=== PATIENT | female | born 1930 | race Caucasian/White ===

== ENCOUNTER 2017-09-19 11:27 | Emergency (ER) | payer OTHER, MEDICAID ==
[~2017-09-19] VITALS: Ht 149.9 cm; Wt 82.6 kg
[2017-09-19] MEDS ORDERED: FLEET ENEMA(ADULT) 135 ML PR ONE (12:00)
[2017-09-19 12:44] LABS: Basophils # (auto) 0.1 uL; Eosinophils # (auto) 0.4 uL; Lymphocytes # (auto) 1.9 uL; Monocytes # (auto) 0.7 uL; Neutrophils # (auto) 4.7 uL; Nucleated Red Blood Cells % 0.1 %; Red Cell Distribution Width 15.1 % (11.8-14.3)
[2017-09-19 12:46] LABS: Basophils % (auto) 0.8 % (0.0-2.0); Eosinophils % (auto) 5.4 % (0.0-7.0); Hematocrit 36.4 % (36.0-46.0); Lymphocytes % (auto) 24.6 % (10.0-50.0); Mean Corpuscular Hemoglobin 27.3 pg (28.0-32.0); Mean Corpuscular Volume 82.7 fL (80.0-100.0); Monocytes % (auto) 8.7 % (0.0-12.0); Neutrophils % (auto) 60.5 % (37.0-80.0); Platelet Count (auto) 189 10^3/uL (140-450); White Blood Cell 7.8 10^3/uL (4.4-10.8)
[2017-09-19 13:07] LABS: Albumin 3.2 g/dL (3.4-5.0); BUN/Creatinine Ratio 18.8; Bilirubin, Total 0.5 mg/dL (0.2-1.0); Calcium 8.6 mg/dL (8.5-10.1); Magnesium 2.2 mg/dL (1.6-2.6); Potassium 4.8 mmol/L (3.5-5.1); Total Protein 7.7 g/dL (6.4-8.2)
[2017-09-19 13:40] VITALS: BP 146/66
== END 2017-09-19 15:22 | disposition home or self-care (01) ==
LOC: ER 11:27 → EDUNIT# 11:27 → EDBD 11:27 → ER 15:22
DX: K59.00 Constipation, unspecified (principal); J44.9 Chronic obstructive pulmonary disease, unspecified; K21.9 Gastro-esophageal reflux disease without esophagitis; I10 Essential (primary) hypertension; Z86.73 Personal history of transient ischemic attack (TIA), and cerebral infarction without residual deficits; Z90.710 Acquired absence of both cervix and uterus; Z90.49 Acquired absence of other specified parts of digestive tract; Z87.891 Personal history of nicotine dependence
CPT/HCPCS: 36415; 74176; 80053; 82150; 83690; 83735; 85025; 93005; 94761

== ENCOUNTER 2019-05-26 18:57 | Emergency (ER) | payer OTHER, MEDICAID ==
[~2019-05-26] VITALS: Ht 149.9 cm; Wt 77.1 kg
[2019-05-26] MEDS ORDERED: HYDROmorphone HCL 2 MG/ML VL IV ONE (20:15)
[2019-05-26] MEDS ORDERED: ONDANSETRON HCL 4 MG/2 ML VIAL IV ONE (20:15)
[2019-05-26 20:24] LABS: Basophils # (auto) 0 uL; Basophils % (auto) 0.7 % (0.0-2.0); Eosinophils # (auto) 0.3 uL; Eosinophils % (auto) 5.9 % (0.0-7.0); Hematocrit 33.5 % (36.0-46.0); Hemoglobin 10.5 g/dL (12.2-16.2); Lymphocytes # (auto) 1.4 uL; Lymphocytes % (auto) 24.1 % (10.0-50.0); Mean Corpuscular Hemoglobin 25.1 pg (28.0-32.0); Mean Corpuscular Hgb Conc. 31.3 g/dL (32.0-36.0); Mean Corpuscular Volume 80.4 fL (80.0-100.0); Monocytes # (auto) 0.6 uL; Monocytes % (auto) 10.3 % (0.0-12.0); Neutrophils # (auto) 3.5 uL; Platelet Count (auto) 188 10^3/uL (140-450); Red Blood Cells 4.17 10^6/uL (4.0-5.20); Red Cell Distribution Width 15.5 % (11.8-14.3); White Blood Cell 5.9 10^3/uL (4.4-10.8)
[2019-05-26 20:37] LABS: Alanine Aminotransferase 18 U/L (13-56); Albumin 3.1 g/dL (3.4-5.0); Amylase 39 U/L (25-115); Anion Gap 7 (5-15); Aspartate Aminotransferase 20 U/L (15-37); BUN/Creatinine Ratio 16.3; Blood Urea Nitrogen 17 mg/dL (7-18); Calcium 7.7 mg/dL (8.5-10.1); Carbon Dioxide 26 mmol/L (21-32); Chloride 105 mmol/L (98-107); GFR African American 64 mL/min; GFR Non-African American 53 mL/min; Glucose 111 mg/dL (74-106); Lipase 87 U/L (73-393); Potassium 5.1 mmol/L (3.5-5.1); Sodium 138 mmol/L (136-145)
[2019-05-26 20:39] LABS: Alkaline Phosphatase 89 U/L (45-117); Bilirubin, Total 0.2 mg/dL (0.2-1.0)
[2019-05-26 22:17] LABS: Urine Bacteria FEW /hpf (None Seen); Urine Blood Negative /uL (Negative); Urine Specific Gravity 1.014 (1.001-1.035); Urine WBC 12 /hpf (0 - 5)
[2019-05-26] MEDS ORDERED: cefTRIAXone 1GM/50ML D5W 50 ML IV ONE (23:45)
[2019-05-27 00:58] VITALS: BP 126/55
== END 2019-05-27 01:37 | disposition home or self-care (01) ==
LOC: EDBD 18:57 → ER 19:00
DX: K21.9 Gastro-esophageal reflux disease without esophagitis (principal); R07.9 Chest pain, unspecified; M19.90 Unspecified osteoarthritis, unspecified site; J44.9 Chronic obstructive pulmonary disease, unspecified; I10 Essential (primary) hypertension; E07.9 Disorder of thyroid, unspecified; Z90.49 Acquired absence of other specified parts of digestive tract; Z88.8 Allergy status to other drugs, medicaments and biological substances; Z86.73 Personal history of transient ischemic attack (TIA), and cerebral infarction without residual deficits; Z90.710 Acquired absence of both cervix and uterus
CPT/HCPCS: 36415; 71045; 74176; 76705; 80053; 81001; 82150; 83690; 84484; 85025; 93005; 96365; 96375; 99284; J0696; J1170; J2405

== ENCOUNTER 2019-07-11 22:57 | Emergency (ER) | payer OTHER, MEDICAID ==
[~2019-07-11] VITALS: Ht 167.6 cm; Wt 113.4 kg
[2019-07-12] MEDS ORDERED: ONDANSETRON HCL 4 MG/2 ML VIAL IV ONE ×3 (01:00→11:15)
[2019-07-12] MEDS ORDERED: MORPHINE SULFATE 4 MG/ML SYR/VIAL IV ONE ×2 (01:00→05:45)
[2019-07-12 04:21] LABS: Basophils # (auto) 0 uL; Basophils % (auto) 0.7 % (0.0-2.0); Eosinophils # (auto) 0.4 uL; Eosinophils % (auto) 6.8 % (0.0-7.0); Hematocrit 26.3 % (36.0-46.0); Hemoglobin 8.6 g/dL (12.2-16.2); Lymphocytes # (auto) 1.6 uL; Lymphocytes % (auto) 27.9 % (10.0-50.0); Mean Corpuscular Hemoglobin 25.8 pg (28.0-32.0); Mean Corpuscular Hgb Conc. 32.8 g/dL (32.0-36.0); Mean Corpuscular Volume 78.7 fL (80.0-100.0); Monocytes # (auto) 0.7 uL; Monocytes % (auto) 11.9 % (0.0-12.0); Neutrophils % (auto) 52.7 % (37.0-80.0); Platelet Count (auto) 206 10^3/uL (140-450); Red Blood Cells 3.34 10^6/uL (4.0-5.20); Red Cell Distribution Width 17.2 % (11.8-14.3); White Blood Cell 5.7 10^3/uL (4.4-10.8)
[2019-07-12] MEDS ORDERED: SODIUM CHLORIDE 0.9% 3,400 ML IV ONE (04:30)
[2019-07-12] MEDS ORDERED: VANCOMYCIN PER PHARMACY 1,000 MG IV SCH (04:30)
[2019-07-12 04:40] LABS: Albumin 2.7 g/dL (3.4-5.0); BUN/Creatinine Ratio 13.3; Calcium 7.8 mg/dL (8.5-10.1); Potassium 4.4 mmol/L (3.5-5.1)
[2019-07-12 04:48] LABS: Bilirubin, Total 0.5 mg/dL (0.2-1.0); Total Protein 6.2 g/dL (6.4-8.2)
[2019-07-12] MEDS ORDERED: VANCOMYCIN 1GM/250ML 250 ML IV ONE (05:30)
[2019-07-12 05:33] LABS: Partial Thromboplastin Time 53.5 sec (23.64-32.05)
[2019-07-12 05:43] LABS: INR 6.99 (0.9-1.15)
[2019-07-12] MEDS ORDERED: PIPERACILLIN-TAZOB 3.375GM 100 ML IV SCH (06:00)
[2019-07-12] MEDS ORDERED: HYDROmorphone HCL 2 MG/ML VL IV ONE (08:15)
[2019-07-12 09:31] LABS: Urine Bacteria NONE SEEN /hpf (None Seen); Urine Blood 1+ /uL (Negative); Urine Specific Gravity 1.005 (1.001-1.035); Urine WBC 8 /hpf (0 - 5)
[2019-07-12 11:12] VITALS: BP 112/47
[2019-07-12] MEDS ORDERED: MORPHINE SULF INJ 2 MG/ML SYRINGE 1ML IV ONE (11:15)
[2019-07-13] MEDS ORDERED: VANCOMYCIN 1GM/250ML 250 ML IV SCH (06:00)
== END 2019-07-12 12:12 | disposition short-term general hospital (02) ==
LOC: EDBD 22:57 → ER 23:02
DX: L03.115 Cellulitis of right lower limb (principal); T81.49XA Infection following a procedure, other surgical site, initial encounter; J44.9 Chronic obstructive pulmonary disease, unspecified; K21.9 Gastro-esophageal reflux disease without esophagitis; E78.5 Hyperlipidemia, unspecified; I10 Essential (primary) hypertension; Z86.73 Personal history of transient ischemic attack (TIA), and cerebral infarction without residual deficits; Z90.49 Acquired absence of other specified parts of digestive tract; Z90.710 Acquired absence of both cervix and uterus; Z87.891 Personal history of nicotine dependence; Z88.8 Allergy status to other drugs, medicaments and biological substances
CPT/HCPCS: 36415; 36600; 51702; 71045; 73562; 80053; 81001; 82805; 83605; 84484; 85025; 85379; 85610; 85730; 87040; 87086; 94761; 96365; 96366; 96367; 96375; 96376; 99285; J1170; J2270; J2405; J2543; J3370; J7030

== ENCOUNTER 2019-10-15 17:16 | Emergency (ER) | payer OTHER, MEDICAID ==
[~2019-10-15] VITALS: Ht 152.4 cm; Wt 86.2 kg
[2019-10-15 18:43] LABS: Basophils # (auto) 0 uL; Eosinophils # (auto) 0.1 uL; Eosinophils % (auto) 1.2 % (0.0-7.0); Lymphocytes # (auto) 0.8 uL; Mean Corpuscular Hgb Conc. 31.6 g/dL (32.0-36.0); Neutrophils # (auto) 3.8 uL; White Blood Cell 4.8 10^3/uL (4.4-10.8)
[2019-10-15 18:49] LABS: Basophils % (auto) 0.9 % (0.0-2.0); Hematocrit 31.9 % (36.0-46.0); Hemoglobin 10.1 g/dL (12.2-16.2); Lymphocytes % (auto) 15.9 % (10.0-50.0); Mean Corpuscular Hemoglobin 23.2 pg (28.0-32.0); Mean Corpuscular Volume 73.3 fL (80.0-100.0); Monocytes # (auto) 0.1 uL; Platelet Count (auto) 211 10^3/uL (140-450); Red Blood Cells 4.35 10^6/uL (4.0-5.20)
[2019-10-15 19:06] LABS: Anion Gap 6 (5-15); Blood Urea Nitrogen 17 mg/dL (7-18); Calcium 8.1 mg/dL (8.5-10.1); Carbon Dioxide 25 mmol/L (21-32); Chloride 103 mmol/L (98-107); Glucose 151 mg/dL (74-106); Potassium 4.3 mmol/L (3.5-5.1); Sodium 134 mmol/L (136-145)
[2019-10-15 19:13] LABS: Alanine Aminotransferase 18 U/L (13-56); Alkaline Phosphatase 98 U/L (45-117); Aspartate Aminotransferase 21 U/L (15-37); BUN/Creatinine Ratio 19.1; Bilirubin, Total 0.2 mg/dL (0.2-1.0); GFR African American 77 mL/min; GFR Non-African American 64 mL/min; Total Protein 7.2 g/dL (6.4-8.2)
[2019-10-15 19:37] LABS: INR 1.01 (0.9-1.15); Partial Thromboplastin Time 27.2 sec (23.64-32.05)
[2019-10-15] MEDS ORDERED: LEVOFLOXACIN 500MG 100 ML IV ONE (21:45)
[2019-10-15] MEDS ORDERED: IOHEXOL 300 MG/ML 100ML BOTTLE IJ ONE (22:33)
[2019-10-15 22:45] VITALS: BP 132/71
== END 2019-10-16 02:30 | disposition left against medical advice (07) ==
LOC: EDBD 17:16 → ER 17:16
DX: J44.1 Chronic obstructive pulmonary disease with (acute) exacerbation (principal); E87.1 Hypo-osmolality and hyponatremia; R53.1 Weakness; K21.9 Gastro-esophageal reflux disease without esophagitis; E78.5 Hyperlipidemia, unspecified; I10 Essential (primary) hypertension; Z87.891 Personal history of nicotine dependence; Z90.710 Acquired absence of both cervix and uterus; Z86.73 Personal history of transient ischemic attack (TIA), and cerebral infarction without residual deficits
CPT/HCPCS: 36415; 71045; 71260; 74177; 80053; 83880; 84484; 85025; 85379; 85610; 85730; 93005; 96365; 99284; J1956; Q9967

== ENCOUNTER 2020-06-28 04:52 | Emergency (ER) | payer OTHER, MEDICAID ==
[~2020-06-28] VITALS: Ht 165.1 cm; Wt 90.7 kg
[2020-06-28] MEDS ORDERED: cloNIDine HCL 0.1 MG TAB PO ONE ×2 (06:45→07:00)
[2020-06-28] MEDS ORDERED: HYDROcodone-ACET 5/325MG TAB PO ONE (07:00)
[2020-06-28 08:44] VITALS: BP 146/62
[2020-06-29] MEDS ORDERED: PROP20TA73 PO (17:46)
[2020-06-29] MEDS ORDERED: PRAM0.5T2 PO (17:46)
[2020-06-29] MEDS ORDERED: PREG75CA PO (17:46)
[2020-06-29] MEDS ORDERED: LEVO75TA6 PO (17:46)
[2020-06-29] MEDS ORDERED: ALBUAER3 IN (17:46)
[2020-06-29] MEDS ORDERED: HYDR-531 PO (17:46)
[2020-06-29] MEDS ORDERED: OMEP-260 PO (17:46)
[2020-06-29] MEDS ORDERED: TRAZ100T3 PO (17:46)
[2020-06-29] MEDS ORDERED: FLUT115A IN (17:46)
[2020-06-29] MEDS ORDERED: DICL1GEL50 TD (17:46)
[2020-06-29] MEDS ORDERED: ATOR10TA52 PO (17:46)
[2020-06-29] MEDS ORDERED: ONDA-144 PO (17:46)
[2020-06-29] MEDS ORDERED: ALBU0.08 NEB (17:46)
== END 2020-06-28 09:45 | disposition home or self-care (01) ==
LOC: EDBD 04:52 → EDUNIT# 04:52 → ER 04:52
DX: S86.912A Strain of unspecified muscle(s) and tendon(s) at lower leg level, left leg, initial encounter (principal); S86.911A Strain of unspecified muscle(s) and tendon(s) at lower leg level, right leg, initial encounter; R58 Hemorrhage, not elsewhere classified; M51.36 Other intervertebral disc degeneration, lumbar region; J44.9 Chronic obstructive pulmonary disease, unspecified; K21.9 Gastro-esophageal reflux disease without esophagitis; E78.5 Hyperlipidemia, unspecified; Z90.710 Acquired absence of both cervix and uterus; Z87.891 Personal history of nicotine dependence; Z86.73 Personal history of transient ischemic attack (TIA), and cerebral infarction without residual deficits; W18.39XA Other fall on same level, initial encounter; Y93.89 Activity, other specified; Y92.89 Other specified places as the place of occurrence of the external cause; Y99.8 Other external cause status
CPT/HCPCS: 71045; 72170; 73560; 93005

== ENCOUNTER 2020-06-29 11:25 | Inpatient (IN) | payer OTHER, MEDICAID ==
[~2020-06-29] VITALS: Ht 157.5 cm; Wt 80.8 kg
[2020-06-29] MEDS ORDERED: SODIUM CHLORIDE 0.9% 500 ML IVB ONE (11:35)
[2020-06-29 11:56] LABS: Basophils # (auto) 0 10 ^3/uL (0-0.2); Eosinophils # (auto) 0 10 ^3/uL (0-0.8); Eosinophils % (auto) 0.4 % (0.0-7.0); Lymphocytes # (auto) 1.1 10 ^3/uL (0.4-5.4); White Blood Cell 6.7 10^3/uL (4.4-10.8)
[2020-06-29 12:00] LABS: Basophils % (auto) 0.6 % (0.0-2.0); Hematocrit 29.7 % (36.0-46.0); Mean Corpuscular Hemoglobin 20.4 pg (28.0-32.0); Mean Corpuscular Hgb Conc. 30.1 g/dL (32.0-36.0); Mean Corpuscular Volume 67.8 fL (80.0-100.0); Monocytes # (auto) 0.5 10 ^3/uL (0-1.3); Monocytes % (auto) 6.8 % (0.0-12.0); Neutrophils % (auto) 75.2 % (37.0-80.0); Nucleated Red Blood Cells % 0.1 %; Platelet Count (auto) 235 10^3/uL (140-450); Red Blood Cells 4.39 10^6/uL (4.0-5.20); Red Cell Distribution Width 19.8 % (11.8-14.3)
[2020-06-29 12:38] LABS: Chloride 103 mmol/L (98-107); Potassium 4.7 mmol/L (3.5-5.1); Sodium 134 mmol/L (136-145)
[2020-06-29 12:53] LABS: Alanine Aminotransferase 22 U/L (13-56); Albumin 3.1 g/dL (3.4-5.0); Alkaline Phosphatase 62 U/L (45-117); Anion Gap 6 (5-15); Aspartate Aminotransferase 23 U/L (15-37); BUN/Creatinine Ratio 24.4; Bilirubin, Total 0.4 mg/dL (0.2-1.0); Blood Urea Nitrogen 29 mg/dL (7-18); Calcium 7.4 mg/dL (8.5-10.1); Carbon Dioxide 25 mmol/L (21-32); GFR African American 55 mL/min; GFR Non-African American 45 mL/min; Glucose 137 mg/dL (74-106); Magnesium 2.5 mg/dL (1.6-2.6); Total Protein 6.9 g/dL (6.4-8.2)
[2020-06-29] MEDS ORDERED: NITROGLYCERIN 0.4 MG SL TAB SL PRN (15:00)
[2020-06-29] MEDS ORDERED: MORPHINE SULF INJ 2 MG/ML SYRINGE 1ML IV PRN (15:00)
[2020-06-29 15:25] LABS: Amylase 46 U/L (25-115); Lipase 198 U/L (73-393)
[2020-06-29] MEDS ORDERED: LABETALOL HCL 5 MG/ML ML 20ML VIAL IV PRN (15:45)
[2020-06-29] MEDS ORDERED: LACTULOSE 20Gm/30ML SOLN PO PRN (15:45)
[2020-06-29] MEDS ORDERED: DEXTROSE (50%) 50ML SYRG IV PRN (15:45)
[2020-06-29] MEDS ORDERED: ALBUTEROL SULF 2.5 MG/0.5ML(0.5%) NEB SOLN NEB PRN (15:45)
[2020-06-29 17:00] VITALS: BP 175/78
--- NOTE | 2020-06-29 17:05 | NUR ---
Telemetry admit from ER [facility]ST[facility] BRIUZELA admitted to Telemetry unit after verbal report received. Patient oriented to Rhona Garcia, primary RN, unit, room, bed, and unit policies regarding patient care and visiting hours. Patient now on continuous telemetry monitoring, tele box #56 and telemetry reading on arrival to unit is sinus rhythm @ 97 bpm. IV to left forearm, 20 gauge, patent and infusing 0.9% NS @ 80 ml/hr. Patient placed on bedside oxygen, weighed by bedscale and encouraged to call if they need something. All questions and concerns addressed, patient verbalized understanding. Bed locked, in lowest position, call light within reach, will continue to monitor Q 1 hour and PRN. Bed alarm for patient safety.
[2020-06-29] MEDS: ACCU-CHEK COMFORT CURVE STRIP VI SCH ×2 (17:26→21:32)
[2020-06-29] MEDS: SODIUM CHLORIDE 0.9% 1,000 ML IV SCH (17:28)
[2020-06-29 17:37] VITALS: BP 175/78
[2020-06-29 17:43] VITALS: BP 156/69
[2020-06-29] MEDS ORDERED: PRAM0.5T2 PO (17:46)
[2020-06-29] MEDS ORDERED: DICL1GEL50 TD (17:46)
[2020-06-29] MEDS ORDERED: ALBUAER3 IN (17:46)
[2020-06-29] MEDS ORDERED: OMEP-260 PO (17:46)
[2020-06-29] MEDS ORDERED: PREG75CA PO (17:46)
[2020-06-29] MEDS ORDERED: HYDR-531 PO (17:46)
[2020-06-29] MEDS ORDERED: PROP20TA73 PO (17:46)
[2020-06-29] MEDS ORDERED: FLUT115A IN (17:46)
[2020-06-29] MEDS ORDERED: ONDA-144 PO (17:46)
[2020-06-29] MEDS ORDERED: LEVO75TA6 PO (17:46)
[2020-06-29] MEDS ORDERED: ATOR10TA52 PO (17:46)
[2020-06-29] MEDS ORDERED: ALBU0.08 NEB (17:46)
[2020-06-29] MEDS ORDERED: TRAZ100T3 PO (17:46)
[2020-06-29] MEDS ORDERED: OPTISON 3ml Vial for INJ IV ONE (17:47)
--- NOTE | 2020-06-29 19:13 | NUR ---
Care endorsed to PAT Pope, night nurse.
--- NOTE | 2020-06-29 19:14 | NUR ---
Opening Shift Note Assumed care of patient, awake and alert. No S/S of distress/SOB or pain. Instructed on POC and to call for assist PRN, will continue to monitor for changes Q1hr and PRN. fall precautions in place call light within reach and bed in low position
[2020-06-29 19:56] LABS: Hematocrit 30.2 % (36.0-46.0); Hemoglobin 8.9 g/dL (12.2-16.2)
--- NOTE | 2020-06-29 20:02 | NUR ---
Respiratory note: PT ASSESSED FOR PRN MED NEB TX. HR 77, RR 18, SPO2 100% ON 3L NC. NO S/S OF ANY RESPIRATORY DISTRESS NOTED. ADVISED PT TO CALL IF TX IS NEEDED.
[2020-06-29 20:48] LABS: Urine Bacteria NONE SEEN /hpf (None Seen); Urine Blood Negative /uL (Negative); Urine Specific Gravity 1.014 (1.001-1.035); Urine WBC 1 /hpf (0 - 5)
[2020-06-29 22:00] VITALS: BP 148/74
[2020-06-29] MEDS ORDERED: PANTOPRAZOLE 40 MG TAB PO SCH (22:00)
[2020-06-29] MEDS ORDERED: ATORVASTATIN 20 MG TAB PO SCH (22:00)
[2020-06-29] MEDS ORDERED: FAMOTIDINE 20 MG TAB PO SCH (22:00)
--- NOTE | 2020-06-29 22:43 | NUR ---
patient requesting to leave AMA stating " i want to be with my " patient educated that it is not safe to go home as patient has unsteady gait risk for falls. patient educated on risks and benefits. patient verbalized refusal. caregiver called. per caregiver she will not vegetable picker patient until tomorrow. patient informed patient requesting to leave. charger tester made aware. fall precautions in place.
--- NOTE | 2020-06-29 22:56 | NUR ---
hospitalist paged. patient requesting sleeping pill
--- NOTE | 2020-06-29 23:08 | NUR ---
spoke with hospitalist new orders received orders read back and verified by inez deshpande
[2020-06-29] MEDS ORDERED: TEMAZEPAM 15 MG CAP PO ONE (23:15)
[2020-06-29] MEDS ORDERED: HYDROcodone-ACET 5/325MG TAB PO ONE (23:15)
[2020-06-30 01:23] LABS: Hematocrit 28.1 % (36.0-46.0); Hemoglobin 8.6 g/dL (12.2-16.2)
--- NOTE | 2020-06-30 01:34 | NUR ---
5/10 PAIN GENERALIZED. PATIENT MEDICATED FOR PAIN
--- NOTE | 2020-06-30 02:33 | NUR ---
pain patient sleeping no signs of sob distress or pain. fall precautions in place
[2020-06-30] MEDS: SODIUM CHLORIDE 0.9% 1,000 ML IV SCH (04:15)
[2020-06-30 05:00] VITALS: BP 158/86
[2020-06-30 05:58] LABS: Hemoglobin 8.3 g/dL (12.2-16.2)
--- NOTE | 2020-06-30 06:02 | NUR ---
PATIENT REQUESTING PAIN MEDICATION GENERALIZED PAIN 04/25. HOSPITALIST PAGED.
[2020-06-30] MEDS: ACCU-CHEK COMFORT CURVE STRIP VI SCH (06:33)
--- NOTE | 2020-06-30 06:33 | NUR ---
RECEIVED NEW ORDERS FROM HOSPITALIST TYESHA. ORDERS READ BACK AND VERIFIED BY TERRANCE ARAMBULA
--- NOTE | 2020-06-30 06:42 | NUR ---
SPOKE WITH CAREGIVER MITCH. UPDATED ON POC AND INFORMED MITCH PATIENT IS REQUESTING TO LEAVE AMA.INFORMED MITCH PATIENT STILL HAS PENDING TESTS/PROCEDURES TO BE DONE EDUCATED ON BENEFITS AND RISKS TO MITCH AND PATIENT IF SHE LEAVES AMA.BOTH VERBALIZED UNDERSTANDING. PER MITCH SHE WILL WELDER [employer] TUNG[employer]EN ARC PATIENT IF HOSPITAL PROVIDES TRANSPORTATION TO HOME. WILL NOTIFY DAYSHIFT RN TO VERIFY IF TRANSPORTATION IS AVAILABLE.
[2020-06-30] MEDS ORDERED: HYDROcodone-ACET 5/325MG TAB PO ONE (06:45)
--- NOTE | 2020-06-30 07:07 | NUR ---
endorsed care to dayshift rn. patient denies sob or distress.
--- NOTE | 2020-06-30 07:29 | NUR ---
Respiratory note: Assessed pt for prn medneb tx. HR 97, RR 18, SPO2 97% on room air. Breath sounds clear t/o. Pt denies SOB, no s/s of distress. Medneb tx not indicated at this time. Pt aware to call for RT if feeling SOB or requesting breathing tx.
--- NOTE | 2020-06-30 07:50 | NUR ---
Opening Shift Note Assumed care of patient, awake, alert and oriented X4. No S/S of distress/SOB or pain. Tele# 56, sinus rhythm @ 97 bpm. IV to left forearm, 20 gauge, patent and infusing 0.9% NS @ 80 ml/hr. Instructed on POC and to call for assist PRN, verbalized understanding but insistent on leaving AMA. Paged on-call hospitalist to inform, awaiting return call. Bed locked, in lowest position, call light within reach, will continue to monitor for changes Q1hr and PRN.
--- NOTE | 2020-06-30 08:00 | NUR ---
AMA Note WESTON BRIZUELA states they want to leave the hospital Against Medical Advice (AMA). Patient encouraged to stay for further treatment/stabilization. Dr Estephania Mcmillan notified of patient's wishes. Patient advised of the risks and benefits of leaving AMA. Patient verbalized understanding. Tele removed and returned to tele monitor and IV to left wrist removed with catheter intact, dressing applied. Patient encouraged to return to the ER if symptoms do not improve or worsen.
--- NOTE | 2020-06-30 08:05 | NUR ---
AMA Call placed to night time nanny, Clair, informed patient wishes to leave AMA. Per Clair, she will not pick patient up from hospital due to being "afraid" she will "catch" something but verbalized she will meet patient at the patient's apartment to help her get in the apartment. Informed we will arrange a Taxi to transport patient, Clair verbalized she will meet the Taxi at the patients apartment. Patient updated on plan of care, verbalized understanding.
[2020-06-30 09:00] VITALS: BP 159/94
--- NOTE | 2020-06-30 09:15 | NUR ---
[facility] arrived, [facility] all belongings. Tye, Physical therapist, assisted patient into cab, no distress noted upon departure. Call Placed to Clair, pcmh specialist, informed patient enroute to residence, verbalized she will meet them there. PAT Bee, Charge Nurse and Dr Estephania Mcmillan informed, both verbalized understanding.
[2020-06-30] MEDS ORDERED: ENOXAPARIN SOD 40 MG/0.4 ML SYRINGE SC SCH (10:00)
[2020-06-30] MEDS ORDERED: ASPirin 81 mg TAB PO SCH (10:00)
--- NOTE | 2020-07-02 10:25 | NUR ---
Weekend events traffic controller 06/30/20 I did not receive a page regarding the social service consult for this patient.
== END 2020-06-30 09:15 | disposition left against medical advice (07) | DRG 69 ==
LOC: EDBD 11:25 → ER 11:25 → TELE 11:26 → TELE-WESTW 17:09
PROVIDERS: ADMIT Internal Medicine; ATTEND Internal Medicine
DX: G45.9 Transient cerebral ischemic attack, unspecified (principal); R55 Syncope and collapse; E78.5 Hyperlipidemia, unspecified; E89.0 Postprocedural hypothyroidism; G89.29 Other chronic pain; I25.10 Atherosclerotic heart disease of native coronary artery without angina pectoris; Z53.29 Procedure and treatment not carried out because of patient's decision for other reasons; Z88.8 Allergy status to other drugs, medicaments and biological substances; J44.9 Chronic obstructive pulmonary disease, unspecified; Z86.73 Personal history of transient ischemic attack (TIA), and cerebral infarction without residual deficits; Z90.710 Acquired absence of both cervix and uterus; S09.90XA Unspecified injury of head, initial encounter; W18.39XA Other fall on same level, initial encounter; Y93.89 Activity, other specified; Y92.89 Other specified places as the place of occurrence of the external cause; Y99.8 Other external cause status; N18.9 Chronic kidney disease, unspecified; I12.9 Hypertensive chronic kidney disease with stage 1 through stage 4 chronic kidney disease, or unspecified chronic kidney disease; D50.9 Iron deficiency anemia, unspecified
CPT/HCPCS: 36415; 70450; 71045; 74176; 80053; 81001; 82150; 82550; 82962; 83036; 83690; 83735; 84443; 84484; 85014; 85018; 85025; 85045; 93005; 93306; 94640; 99291; G0378; Q9956

== ENCOUNTER → 2020-07-05 | Emergency (ER) | payer OTHER, MEDICAID ==
[~2020-07-05] VITALS: Ht 147.3 cm; Wt 77.1 kg
[~2020-07-05] MED LIST: ALBU0.08 NEB; ALBUAER3 IN; ATOR10TA52 PO; DICL1GEL50 TD; FLUT115A IN; HYDR-531 PO; LEVO75TA6 PO; MORPHINE SULF INJ 2 MG/ML SYRINGE 1ML IM ONE; OMEP-260 PO; ONDA-144 PO; ONDANSETRON HCL 4 MG/2 ML VIAL IM ONE; PRAM0.5T2 PO; PREG75CA PO; PROP20TA73 PO; TRAZ100T3 PO
[2020-07-05 09:49] VITALS: BP 156/72
== END | disposition home or self-care (01) ==
LOC: EDUNIT# 06:50 → ER 06:58 → EDBD 06:58
DX: M25.552 Pain in left hip (principal); M79.18 Myalgia, other site; M35.3 Polymyalgia rheumatica; J44.9 Chronic obstructive pulmonary disease, unspecified; K21.9 Gastro-esophageal reflux disease without esophagitis; E78.5 Hyperlipidemia, unspecified; I10 Essential (primary) hypertension; Z87.891 Personal history of nicotine dependence; Z90.710 Acquired absence of both cervix and uterus; Z86.73 Personal history of transient ischemic attack (TIA), and cerebral infarction without residual deficits
CPT/HCPCS: 71111; 72192; 96372; 99284; J2270; J2405